=== PATIENT | male | born 1960 | race Caucasian/White ===

== ENCOUNTER 2021-02-01 15:26 | Inpatient (IN) ==
[2021-02-01 18:10] LABS: Basophils # 0.1 K/mcL (0.0-0.2); Basophils % 0.9 %; Hemoglobin 15.9 g/dL (12.9-16.9); Immature Granulocytes % 1.1 % (0-4); Lymphocytes # 0.5 K/mcL (0.6-4.6); Lymphocytes % 8.2 %; Mean Corpuscular HGB Conc 33.8 g/dL (31.6-35.5); Mean Corpuscular Hemoglobin 30.2 pg (28.0-33.3); Mean Corpuscular Volume 89.4 fL (83.0-100.0); Monocytes # 0.4 K/mcL (0.0-1.3); Monocytes % 6.8 %; Neutrophils # 5.3 K/mcL (1.6-8.9); Platelet Count 235 K/mcL (140-400); Red Blood Count 5.26 M/mcL (4.19-5.50); White Blood Count 6.4 K/mcL (4.3-11.1)
[2021-02-01 18:13] LABS: Reactive Lymphocytes Present (Not Present)
[2021-02-01 18:14] LABS: Platelet Estimate Normal (Normal)
[2021-02-01 18:18] LABS: INR 1.2; Prothrombin Time 13.2 Seconds (9.4-12.1)
[2021-02-01 18:20] LABS: Activated Partial Thrombo Time 28.4 Seconds (26.0-36.0)
[2021-02-01 18:33] LABS: Alanine Aminotransferase 45 Units/L (7-52); Albumin 3.9 g/dL (3.5-5.7); Alkaline Phosphatase 86 Units/L (34-104); Aspartate Amino Transferase 34 Units/L (13-39); BUN/Creatinine Ratio 27 (6-26); Bilirubin,Direct 0.3 mg/dL (0.0-0.2); Bilirubin,Indirect 0.6 mg/dL (0.0-1.0); Bilirubin,Total 0.9 mg/dL (0.3-1.0); Blood Urea Nitrogen 26 mg/dL (6-20); C-Reactive Protein 177 mg/L (Less than 10); Calcium 9.2 mg/dL (8.6-10.3); Carbon Dioxide 21 mEq/L (23-29); Chloride 90 mEq/L (98-107); Globulin 4.1 g/dL (2.4-3.5); Glucose 365 mg/dL (70-105); Lactate Dehydrogenase 515 Units/L (140-271); Magnesium 2.2 mg/dL (1.6-2.6); Osmolality,Calculated 296 (280-300); Phosphorous 3.9 mg/dL (2.7-4.5); Potassium 3.8 mEq/L (3.5-5.1); Sodium 133 mEq/L (136-145); Troponin I 0.03 ng/mL (< 0.04); eGFR For African Americans > 60 (> 60); eGFR For Non-African Americans > 60 (> 60)
[2021-02-01] MEDS ORDERED: Isovue-370 500 ML BOTTLE IVP ONE (19:04)
[2021-02-01] MEDS: cefTRIAXone 1,000 MG in 0.9 % Sodium Chloride Mini Bag 100 ML IVPB SCH (21:35)
[2021-02-01] MEDS ORDERED: Melatonin 3 MG TABLET PO PRN (21:41)
[2021-02-01] MEDS ORDERED: Naloxone 0.4 MG/ML INJ IVP PRN (21:41)
[2021-02-01] MEDS ORDERED: *HR* Dextrose 50 % in Water (Syg) 50 ML SYRINGE IVP PRN (21:51)
[2021-02-01] MEDS ORDERED: D5% in Water 1,000 ML IVC PRN (21:51)
[2021-02-01] MEDS ORDERED: Dextrose Gel 15 GM/37.5 ML TUBE PO PRN ×2 (21:51)
[2021-02-01] MEDS ORDERED: Insulin DETEMIR 100 UNIT/ML X5UNITS SUBQ SCH (22:45)
[2021-02-01] MEDS: Azithromycin 500 MG in 0.9 % Sodium Chloride 250 ML IVPB SCH (23:52)
[2021-02-02] MEDS ORDERED: Ondansetron ODT 4 MG TAB.RAPDIS SL PRN (00:09)
[2021-02-02 03:54] LABS: BUN/Creatinine Ratio 30 (6-26); Blood Urea Nitrogen 27 mg/dL (6-20); Calcium 8.5 mg/dL (8.6-10.3); Carbon Dioxide 13 mEq/L (23-29); Chloride 93 mEq/L (98-107); Glucose 369 mg/dL (70-105); Magnesium 2.4 mg/dL (1.6-2.6); Osmolality,Calculated 294 (280-300); Phosphorous 3.9 mg/dL (2.7-4.5); Potassium 4.2 mEq/L (3.5-5.1); Sodium 132 mEq/L (136-145); eGFR For African Americans > 60 (> 60); eGFR For Non-African Americans > 60 (> 60)
[2021-02-02] MEDS: *HR* Enoxaparin 40 MG/0.4 ML SYRINGE SQ SCH (05:06)
[2021-02-02] MEDS: amLODIPine 5 MG TABLET PO SCH (07:44)
[2021-02-02] MEDS: Cholecalciferol (D-3) 1,000 UNIT (25MCG) TABLET PO SCH (07:56)
[2021-02-02] MEDS: Loratadine 10 MG TABLET PO SCH (07:56)
[2021-02-02] MEDS: Aspirin 81 MG TAB.CHEW PO SCH (07:56)
[2021-02-02] MEDS: Gabapentin 400 MG CAPSULE PO SCH ×4 (07:56→19:35)
[2021-02-02] MEDS: Dexamethasone Sodium Phos/PF 10 MG/ML VIAL IVP SCH (07:57)
[2021-02-02] MEDS: Furosemide 40 MG/4 ML VIAL IVP SCH (07:58)
[2021-02-02] MEDS: cefTRIAXone 1,000 MG in 0.9 % Sodium Chloride Mini Bag 100 ML IVPB SCH (07:58)
[2021-02-02] MEDS: Insulin LISPRO 300 UNITS/3 ML VIAL SUBQ SCH ×3 (08:24→17:06)
[2021-02-02] MEDS: Insulin DETEMIR 100 UNIT/ML X5UNITS SUBQ SCH ×2 (08:25→21:14)
[2021-02-02] MEDS ORDERED: Losartan/HCTZ 50-12.5 TABLET PO SCH (09:00)
[2021-02-02 10:15] LABS: Hematocrit 47.3 % (37.5-50.1); Hemoglobin 16.2 g/dL (12.9-16.9); Mean Corpuscular HGB Conc 34.2 g/dL (31.6-35.5); Mean Corpuscular Hemoglobin 30.9 pg (28.0-33.3); Mean Corpuscular Volume 90.1 fL (83.0-100.0); Monocytes # 0.4 K/mcL (0.0-1.3); Platelet Count 305 K/mcL (140-400); Red Blood Count 5.25 M/mcL (4.19-5.50); White Blood Count 7.2 K/mcL (4.3-11.1)
[2021-02-02 10:19] LABS: Neutrophils # 5.9 K/mcL (1.6-8.9)
[2021-02-02 10:43] LABS: Lymphocytes # 0.9 K/mcL (0.6-4.6)
[2021-02-02 10:44] LABS: Platelet Estimate Normal (Normal); Reactive Lymphocytes Present (Not Present)
[2021-02-02] MEDS ORDERED: Ondansetron 4 MG/2 ML VIAL IVP PRN (11:03)
[2021-02-02] MEDS: Ipratropium 1 PUFF INHALER IH SCH ×3 (12:01→22:03)
[2021-02-02] MEDS ORDERED: *HR* Metoprolol 5 MG/5 ML VIAL IVP ONE (13:40)
[2021-02-02] MEDS ORDERED: Insulin LISPRO 300 UNITS/3 ML VIAL SUBQ SCH (21:00)
[2021-02-02] MEDS: Azithromycin 500 MG in 0.9 % Sodium Chloride 250 ML IVPB SCH (21:15)
[2021-02-03] MEDS: Ipratropium 1 PUFF INHALER IH SCH ×4 (03:24→21:49)
[2021-02-03] MEDS: *HR* Enoxaparin 40 MG/0.4 ML SYRINGE SQ SCH (05:54)
[2021-02-03] MEDS: Dexamethasone Sodium Phos/PF 10 MG/ML VIAL IVP SCH (08:49)
[2021-02-03] MEDS: Furosemide 40 MG/4 ML VIAL IVP SCH (08:49)
[2021-02-03] MEDS: Loratadine 10 MG TABLET PO SCH (08:50)
[2021-02-03] MEDS: Insulin DETEMIR 100 UNIT/ML X5UNITS SUBQ SCH (08:50)
[2021-02-03] MEDS: Insulin LISPRO 300 UNITS/3 ML VIAL SUBQ SCH ×4 (08:50→16:45)
[2021-02-03] MEDS: amLODIPine 5 MG TABLET PO SCH (08:50)
[2021-02-03] MEDS: Cholecalciferol (D-3) 1,000 UNIT (25MCG) TABLET PO SCH (08:50)
[2021-02-03] MEDS: Aspirin 81 MG TAB.CHEW PO SCH (08:50)
[2021-02-03] MEDS: Gabapentin 400 MG CAPSULE PO SCH ×4 (08:51→20:54)
[2021-02-03] MEDS: cefTRIAXone 1,000 MG in 0.9 % Sodium Chloride Mini Bag 100 ML IVPB SCH (08:51)
[2021-02-03] MEDS ORDERED: NON-FORMULARY MEDICATION 1 EACH EACH (Omeprazole [Prilosec] 40 MG Capsule.Dr) PO SCH (09:00)
[2021-02-03 10:08] LABS: Basophils % 0.4 %; Eosinophils % 0.1 %; Hematocrit 43.4 % (37.5-50.1); Hemoglobin 15.2 g/dL (12.9-16.9); Immature Granulocytes % 1.9 % (0-4); Lymphocytes # 0.8 K/mcL (0.6-4.6); Lymphocytes % 7.7 %; Mean Corpuscular Hemoglobin 31.3 pg (28.0-33.3); Mean Corpuscular Volume 89.5 fL (83.0-100.0); Monocytes # 0.6 K/mcL (0.0-1.3); Monocytes % 5.9 %; Neutrophils # 8.5 K/mcL (1.6-8.9); Platelet Count 317 K/mcL (140-400); Red Blood Count 4.85 M/mcL (4.19-5.50); Red Cell Distribution Width 11.9 % (11.5-14.5); White Blood Count 10.1 K/mcL (4.3-11.1)
[2021-02-03 14:04] LABS: BUN/Creatinine Ratio 35 (6-26); Blood Urea Nitrogen 39 mg/dL (6-20); Calcium 8.8 mg/dL (8.6-10.3); Carbon Dioxide 24 mEq/L (23-29); Chloride 89 mEq/L (98-107); Glucose 407 mg/dL (70-105); Magnesium 2.2 mg/dL (1.6-2.6); Osmolality,Calculated 293 (280-300); Phosphorous 3.8 mg/dL (2.7-4.5); Potassium 3.3 mEq/L (3.5-5.1); Sodium 128 mEq/L (136-145); eGFR For African Americans > 60 (> 60); eGFR For Non-African Americans > 60 (> 60)
[2021-02-03] MEDS ORDERED: Insulin LISPRO 300 UNITS/3 ML VIAL SUBQ ONE (16:30)
[2021-02-03] MEDS: Azithromycin 500 MG in 0.9 % Sodium Chloride 250 ML IVPB SCH (20:57)
[2021-02-03] MEDS ORDERED: Insulin LISPRO 300 UNITS/3 ML VIAL SUBQ SCH ×2 (21:00)
[2021-02-04 00:48] LABS: Ferritin 1381 ng/mL (20-250)
[2021-02-04] MEDS: Ipratropium 1 PUFF INHALER IH SCH ×4 (03:37→20:17)
[2021-02-04 04:59] LABS: Basophils # 0.1 K/mcL (0.0-0.2); Basophils % 0.6 %; Eosinophils % 0.2 %; Hematocrit 40.9 % (37.5-50.1); Hemoglobin 14.2 g/dL (12.9-16.9); Immature Granulocytes % 2.2 % (0-4); Lymphocytes # 0.9 K/mcL (0.6-4.6); Mean Corpuscular HGB Conc 34.7 g/dL (31.6-35.5); Mean Corpuscular Hemoglobin 30.5 pg (28.0-33.3); Mean Corpuscular Volume 87.8 fL (83.0-100.0); Mean Platelet Volume 9.7 fL (9.4-12.4); Monocytes # 0.6 K/mcL (0.0-1.3); Monocytes % 6.8 %; Neutrophils # 6.7 K/mcL (1.6-8.9); Platelet Count 303 K/mcL (140-400); Red Blood Count 4.66 M/mcL (4.19-5.50); Red Cell Distribution Width 11.9 % (11.5-14.5); Segmented Neutrophils % 79.2 %; White Blood Count 8.5 K/mcL (4.3-11.1)
[2021-02-04] MEDS: *HR* Enoxaparin 40 MG/0.4 ML SYRINGE SQ SCH (05:14)
[2021-02-04 05:26] LABS: BUN/Creatinine Ratio 36 (6-26); Blood Urea Nitrogen 31 mg/dL (6-20); Calcium 8.6 mg/dL (8.6-10.3); Carbon Dioxide 25 mEq/L (23-29); Chloride 96 mEq/L (98-107); Glucose 126 mg/dL (70-105); Magnesium 2.3 mg/dL (1.6-2.6); Osmolality,Calculated 286 (280-300); Potassium 2.9 mEq/L (3.5-5.1); Sodium 134 mEq/L (136-145); eGFR For African Americans > 60 (> 60); eGFR For Non-African Americans > 60 (> 60)
[2021-02-04] MEDS: Insulin LISPRO 300 UNITS/3 ML VIAL SUBQ SCH ×4 (08:00→17:01)
[2021-02-04] MEDS: Insulin DETEMIR 100 UNIT/ML X5UNITS SUBQ SCH (09:04)
[2021-02-04] MEDS: Aspirin 81 MG TAB.CHEW PO SCH (09:05)
[2021-02-04] MEDS: Cholecalciferol (D-3) 1,000 UNIT (25MCG) TABLET PO SCH (09:05)
[2021-02-04] MEDS: amLODIPine 5 MG TABLET PO SCH (09:07)
[2021-02-04] MEDS: Loratadine 10 MG TABLET PO SCH (09:08)
[2021-02-04] MEDS: Gabapentin 400 MG CAPSULE PO SCH ×4 (09:08→20:28)
[2021-02-04] MEDS: Furosemide 40 MG/4 ML VIAL IVP SCH (09:59)
[2021-02-04] MEDS: Dexamethasone Sodium Phos/PF 10 MG/ML VIAL IVP SCH (10:29)
[2021-02-04] MEDS: cefTRIAXone 1,000 MG in 0.9 % Sodium Chloride Mini Bag 100 ML IVPB SCH (10:32)
[2021-02-04] MEDS ORDERED: Insulin LISPRO 300 UNITS/3 ML VIAL SUBQ ONE (16:28)
[2021-02-04] MEDS: Azithromycin 250 MG TABLET PO SCH (20:28)
[2021-02-04] MEDS ORDERED: Insulin DETEMIR 100 UNIT/ML X5UNITS SUBQ SCH (21:00)
[2021-02-05 02:35] LABS: Basophils # 0.1 K/mcL (0.0-0.2); Basophils % 1.1 %; Eosinophils % 0.4 %; Hematocrit 41.3 % (37.5-50.1); Lymphocytes # 1.1 K/mcL (0.6-4.6); Lymphocytes % 14.8 %; Mean Corpuscular HGB Conc 33.9 g/dL (31.6-35.5); Mean Corpuscular Hemoglobin 30.4 pg (28.0-33.3); Mean Corpuscular Volume 89.6 fL (83.0-100.0); Mean Platelet Volume 9.6 fL (9.4-12.4); Monocytes # 0.5 K/mcL (0.0-1.3); Monocytes % 6.3 %; Neutrophils # 5.2 K/mcL (1.6-8.9); Platelet Count 295 K/mcL (140-400); Red Blood Count 4.61 M/mcL (4.19-5.50); Red Cell Distribution Width 11.8 % (11.5-14.5); Segmented Neutrophils % 72.4 %; White Blood Count 7.2 K/mcL (4.3-11.1)
[2021-02-05 02:48] LABS: Estimated Average Glucose 263 mg/dl; Hemoglobin A1C 10.8 %
[2021-02-05 02:52] LABS: BUN/Creatinine Ratio 28 (6-26); Blood Urea Nitrogen 23 mg/dL (6-20); Calcium 8.7 mg/dL (8.6-10.3); Carbon Dioxide 23 mEq/L (23-29); Chloride 100 mEq/L (98-107); Glucose 126 mg/dL (70-105); Magnesium 2.1 mg/dL (1.6-2.6); Osmolality,Calculated 283 (280-300); Potassium 3.8 mEq/L (3.5-5.1); Sodium 134 mEq/L (136-145); eGFR For African Americans > 60 (> 60); eGFR For Non-African Americans > 60 (> 60)
[2021-02-05] MEDS: Ipratropium 1 PUFF INHALER IH SCH ×4 (03:51→20:15)
[2021-02-05] MEDS: *HR* Enoxaparin 40 MG/0.4 ML SYRINGE SQ SCH (05:42)
[2021-02-05] MEDS: Insulin LISPRO 300 UNITS/3 ML VIAL SUBQ SCH ×3 (10:10→17:52)
[2021-02-05] MEDS: Aspirin 81 MG TAB.CHEW PO SCH (10:11)
[2021-02-05] MEDS: Cholecalciferol (D-3) 1,000 UNIT (25MCG) TABLET PO SCH (10:11)
[2021-02-05] MEDS: Gabapentin 400 MG CAPSULE PO SCH ×4 (10:12→20:54)
[2021-02-05] MEDS: amLODIPine 5 MG TABLET PO SCH (10:12)
[2021-02-05] MEDS: Loratadine 10 MG TABLET PO SCH (10:12)
[2021-02-05] MEDS: Dexamethasone Sodium Phos/PF 10 MG/ML VIAL IVP SCH (10:17)
[2021-02-05] MEDS: Furosemide 40 MG/4 ML VIAL IVP SCH (10:21)
[2021-02-05] MEDS: cefTRIAXone 1,000 MG in 0.9 % Sodium Chloride Mini Bag 100 ML IVPB SCH (10:39)
[2021-02-05] MEDS: Insulin DETEMIR 100 UNIT/ML X5UNITS SUBQ SCH ×2 (11:09→20:55)
[2021-02-05] MEDS: Azithromycin 250 MG TABLET PO SCH (20:55)
[2021-02-06] MEDS: Ipratropium 1 PUFF INHALER IH SCH ×4 (03:38→20:49)
[2021-02-06] MEDS: *HR* Enoxaparin 40 MG/0.4 ML SYRINGE SQ SCH (05:22)
[2021-02-06 06:48] LABS: Basophils # 0.1 K/mcL (0.0-0.2); Basophils % 1.1 %; Eosinophils # 0.2 K/mcL (0.0-0.6); Hematocrit 40.8 % (37.5-50.1); Hemoglobin 13.8 g/dL (12.9-16.9); Immature Granulocytes % 4.4 % (0-4); Lymphocytes % 11.9 %; Mean Corpuscular HGB Conc 33.8 g/dL (31.6-35.5); Mean Corpuscular Hemoglobin 30.3 pg (28.0-33.3); Mean Corpuscular Volume 89.5 fL (83.0-100.0); Mean Platelet Volume 9.5 fL (9.4-12.4); Monocytes # 0.6 K/mcL (0.0-1.3); Neutrophils # 5.9 K/mcL (1.6-8.9); Platelet Count 261 K/mcL (140-400); Red Blood Count 4.56 M/mcL (4.19-5.50); Segmented Neutrophils % 73.6 %
[2021-02-06 07:07] LABS: BUN/Creatinine Ratio 25 (6-26); Blood Urea Nitrogen 24 mg/dL (6-20); Calcium 8.9 mg/dL (8.6-10.3); Carbon Dioxide 25 mEq/L (23-29); Chloride 98 mEq/L (98-107); Glucose 252 mg/dL (70-105); Magnesium 1.8 mg/dL (1.6-2.6); Osmolality,Calculated 287 (280-300); Potassium 3.5 mEq/L (3.5-5.1); Sodium 132 mEq/L (136-145); eGFR For African Americans > 60 (> 60); eGFR For Non-African Americans > 60 (> 60)
[2021-02-06] MEDS: Loratadine 10 MG TABLET PO SCH (07:39)
[2021-02-06] MEDS: Cholecalciferol (D-3) 1,000 UNIT (25MCG) TABLET PO SCH (07:39)
[2021-02-06] MEDS: Aspirin 81 MG TAB.CHEW PO SCH (07:39)
[2021-02-06] MEDS: Gabapentin 400 MG CAPSULE PO SCH ×4 (07:39→20:38)
[2021-02-06] MEDS: Insulin LISPRO 300 UNITS/3 ML VIAL SUBQ SCH ×3 (07:39→17:33)
[2021-02-06] MEDS: cefTRIAXone 1,000 MG in 0.9 % Sodium Chloride Mini Bag 100 ML IVPB SCH (07:40)
[2021-02-06] MEDS: amLODIPine 5 MG TABLET PO SCH (07:40)
[2021-02-06] MEDS: Dexamethasone Sodium Phos/PF 10 MG/ML VIAL IVP SCH (07:41)
[2021-02-06] MEDS: Insulin DETEMIR 100 UNIT/ML X5UNITS SUBQ SCH ×2 (07:41→20:38)
[2021-02-06] MEDS: Furosemide 40 MG/4 ML VIAL IVP SCH (07:41)
[2021-02-06 18:59] VITALS: TEMP 97.8
[2021-02-07] MEDS ORDERED: Ipratropium 1 PUFF INHALER IH PRN (04:00)
[2021-02-07 06:14] LABS: Basophils # 0.2 K/mcL (0.0-0.2); Eosinophils # 0.2 K/mcL (0.0-0.6); Eosinophils % 1.9 %; Hematocrit 45.6 % (37.5-50.1); Hemoglobin 15.2 g/dL (12.9-16.9); Immature Granulocytes % 6.9 % (0-4); Lymphocytes # 1.4 K/mcL (0.6-4.6); Mean Corpuscular HGB Conc 33.3 g/dL (31.6-35.5); Mean Corpuscular Hemoglobin 30.2 pg (28.0-33.3); Mean Corpuscular Volume 90.5 fL (83.0-100.0); Mean Platelet Volume 9.6 fL (9.4-12.4); Monocytes # 0.6 K/mcL (0.0-1.3); Monocytes % 7.9 %; Neutrophils # 5.2 K/mcL (1.6-8.9); Platelet Count 296 K/mcL (140-400); Red Blood Count 5.04 M/mcL (4.19-5.50); Red Cell Distribution Width 12.1 % (11.5-14.5); Segmented Neutrophils % 64.3 %; White Blood Count 8.1 K/mcL (4.3-11.1)
[2021-02-07 06:35] LABS: BUN/Creatinine Ratio 26 (6-26); Blood Urea Nitrogen 23 mg/dL (6-20); Calcium 9.4 mg/dL (8.6-10.3); Carbon Dioxide 28 mEq/L (23-29); Chloride 102 mEq/L (98-107); Glucose 55 mg/dL (70-105); Osmolality,Calculated 289 (280-300); Potassium 3.5 mEq/L (3.5-5.1); Sodium 139 mEq/L (136-145); eGFR For African Americans > 60 (> 60); eGFR For Non-African Americans > 60 (> 60)
[2021-02-07] MEDS: *HR* Enoxaparin 40 MG/0.4 ML SYRINGE SQ SCH (06:37)
[2021-02-07] MEDS: Insulin LISPRO 300 UNITS/3 ML VIAL SUBQ SCH ×3 (07:17→16:28)
[2021-02-07] MEDS ORDERED: *HR* Dextrose 50 % in Water (Syg) 50 ML SYRINGE IVP ONE (07:55)
[2021-02-07] MEDS: Loratadine 10 MG TABLET PO SCH (07:59)
[2021-02-07] MEDS: Gabapentin 400 MG CAPSULE PO SCH ×3 (07:59→16:30)
[2021-02-07] MEDS: amLODIPine 5 MG TABLET PO SCH (07:59)
[2021-02-07] MEDS: Furosemide 40 MG/4 ML VIAL IVP SCH (07:59)
[2021-02-07] MEDS: Aspirin 81 MG TAB.CHEW PO SCH (07:59)
[2021-02-07] MEDS: Cholecalciferol (D-3) 1,000 UNIT (25MCG) TABLET PO SCH (07:59)
[2021-02-07] MEDS: cefTRIAXone 1,000 MG in 0.9 % Sodium Chloride Mini Bag 100 ML IVPB SCH (08:00)
[2021-02-07] MEDS: Insulin DETEMIR 100 UNIT/ML X5UNITS SUBQ SCH (09:24)
[2021-02-07 10:33] VITALS: PULSE 82
[2021-02-07 16:20] VITALS: BP 164/94; O2SAT 96
[2021-02-07] MEDS ORDERED: Insulin DETEMIR 100 UNIT/ML X5UNITS SUBQ SCH (21:00)
== END 2021-02-07 19:30 | disposition home health service (06) | DRG 137 ==
LOC: 2NENU 15:26 → EMEROOARM 15:26 → 2NENU 21:20 → SUATTDRO 21:41
PROVIDERS: ADMIT Internal Medicine; ATTEND Pharmacist